=== PATIENT | male | born 1980 | race Caucasian/White ===

== ENCOUNTER 2018-08-20 13:08 | Emergency (ER) | payer MEDICAID, SELFPAY ==
[2018-08-20 13:24] VITALS: BP 120/82; PULSE 69; RESP 16; TEMP 36.5; O2SAT 100
== END 2018-08-20 14:42 ==
LOC: ER 14:50
PROVIDERS: Emergency Provider Physician Assistant; PCP Family Medicine
DX: Z53.21 Procedure and treatment not carried out due to patient leaving prior to being seen by health care provider (principal)

== ENCOUNTER 2019-09-20 09:30 | Outpatient (CLI) | payer MEDICAID, SELFPAY ==
[2019-09-20 13:43] LABS: ALT 29 U/L (16-63); AST 14 U/L (15-37); Albumin 4.3 g/dL (3.4-5.0); Alkaline Phosphatase 63 U/L (46-116); BUN 15 mg/dL (7-18); Bilirubin, Total 0.6 mg/dL (0.2-1.0); CREATININE 0.69 mg/dL (0.70-1.30); Chloride 103 mmol/L (98-107); Glucose 88 mg/dL (74-106); Potassium 4.8 mmol/L (3.5-5.1); Sodium 141 mmol/L (136-145); Total Protein 7.3 g/dL (6.4-8.2); Vitamin B12 455 pg/mL (193-986)
[2019-09-20 13:53] LABS: Abs Immature Grans 0.02 k/cumm (0.0-0.09); Absolute Basophil Count 0.04 k/cumm (0.0-0.2); Absolute Eosinophil Count 0.31 k/cumm (0.0-0.7); Absolute Lymphocyte Count 1.68 k/cumm (1.2-3.4); Absolute Monocyte Count 0.48 k/cumm (0.11-0.7); Absolute Neutrophil Count 2.74 k/cumm (1.2-6.7); Basophils % 0.8; Eosinophils % 5.9; HCT 44.1 % (40.0-50.0); HGB 15.3 g/dL (13.5-17.5); Immature Grans % 0.4 %; Lymphocytes % 31.9; Mean Corp. HGB Concentration 34.7 g/dL (32.0-36.0); Mean Corpuscular Hemoglobin 29.3 pg (27.0-33.0); Mean Corpuscular Volume 84.3 fL (80-95); Mean Platelet Volume 9.4 fL (8.0-11.0); Monocytes % 9.1; Neutrophils % 51.9; Platelet Count 346 x1000/uL (130-400); RBC 5.23 m/cumm (4.50-6.00); RBC Distribution Width 12.4 % (11.8-14.1); White Blood Cell Count 5.27 k/cumm (4.4-10.8)
[2019-09-20 15:11] LABS: ESR 7 mm/hr (0-15)
[2019-09-21 12:33] LABS: IgA 140 mg/dL (85-499); Tissue Transglutaminase IgA <1.2 U/mL (<4.0)
[2019-09-22 05:03] LABS: Vitamin D 25 Total 22.2 ng/ml (30-100)
== END 2019-09-20 09:50 ==
PROVIDERS: PCP Family Medicine; Visit Provider Family Medicine
DX: R53.83 Other fatigue (principal); K52.9 Noninfective gastroenteritis and colitis, unspecified; M81.0 Age-related osteoporosis without current pathological fracture
CPT/HCPCS: 36415; 80053; 82306; 82784; 83516; 85652; 82607; 84443; 85025

== ENCOUNTER 2019-09-26 09:29 | Outpatient (CLI) | payer MEDICAID, SELFPAY ==
--- NOTE | 2019-09-26 09:15 | DI.RAD_ITS ---
EXAM: XR CHEST 2V PA LATERAL XR CHEST 2V PA LATERAL CLINICAL HISTORY: fatigue, R53.83 fatigue, R53.83 TECHNIQUE: 2D digital imaging was performed. COMPARISON: No exams were available for comparison FINDINGS: The heart is not enlarged. The lungs are clear and well expanded. No pleural effusion seen. Mediastin al contours appear intact. IMPRESSION: Normal chest
== END 2019-09-26 09:49 ==
PROVIDERS: PCP Family Medicine; Visit Provider Family Medicine
DX: R53.83 Other fatigue (principal)
CPT/HCPCS: 71046

== ENCOUNTER 2024-10-14 00:32 | Outpatient (CLI) | payer MEDICAID, SELFPAY ==
[2024-10-14 12:10] LABS: Abs Immature Grans 0.01 10^3/uL (0.0-0.06); Absolute Basophil Count 0.06 10^3/uL (0.0-0.2); Absolute Eosinophil Count 0.34 10^3/uL (0.0-0.7); Absolute Monocyte Count 0.45 10^3/uL (0.1-0.8); Absolute Neutrophil Count 3.23 10^3/uL (1.2-6.7); Basophils % 1.1 %; Eosinophils % 6.2 %; HCT 45.1 % (40.0-50.0); Immature Grans % 0.2 %; Lymphocytes % 25.5 %; MCHC 33.3 % (32.0-36.0); MCV 87 fL (80-95); MPV 9.5 fL (8.0-11.0); Monocytes % 8.2 %; Neutrophils % 58.8 %; Platelet Count 321 10^3/uL (130-400); RBC 5.17 10^6/uL (4.36-5.78); RDW 11.9 % (11.8-14.1); RDW-SD 38.4 fL; WBC 5.49 10^3/uL (4.4-10.8)
[2024-10-14 12:45] LABS: Hemoglobin A1C 5.1 % (<5.7)
[2024-10-14 12:54] LABS: ALT 34 U/L (16-63); AST 20 U/L (15-37); Albumin 4.1 g/dL (3.4-5.0); Alkaline Phosphatase 68 U/L (46-116); Anion Gap 5.3 mmol/L (3-11); BUN 13 mg/dL (7-18); Bilirubin, Total 0.7 mg/dL (0.2-1.0); CO2 30.7 mmol/L (21.0-32.0); CREATININE 0.7 mg/dL (0.70-1.30); Calcium 9.7 mg/dL (8.5-10.1); Chloride 107 mmol/L (98-107); Estimated GFR 117.98 (mL/min/1.73m2); Glucose 95 mg/dL (74-106); Potassium 4.7 mmol/L (3.5-5.1); Sodium 143 mmol/L (136-145); TSH (W/Ref FT4) 0.77 uIU/mL (0.36-3.74); Vitamin D 25 Total 27 ng/mL (30-100)
[2024-10-14 18:49] LABS: Hepatitis C Ab w Rflx HCV PCR Negative (Negative)
[2024-10-14 18:55] LABS: HIV-1/2 Ag & Ab Screen Negative (Negative)
[2024-10-14 19:01] LABS: HBs Antibody, Quant 24.7 mIU/mL (See Note); Hep B Surface Ab Positive (See Note); Hepatitis B Core Antibody Negative (Negative); Hepatitis B Surface Antigen Negative (Negative)
[2024-10-21 15:40] LABS: Testosterone, Total 568 ng/dL (240-950)
== END 2024-10-14 00:33 | disposition home or self-care (01) ==
LOC: LOS 00:32
PROVIDERS: PCP Nurse Practitioner Family; Visit Provider Nurse Practitioner Family
DX: Z11.4 Encounter for screening for human immunodeficiency virus [HIV] (principal); Z00.00 Encounter for general adult medical examination without abnormal findings; Z11.59 Encounter for screening for other viral diseases; R53.82 Chronic fatigue, unspecified
CPT/HCPCS: 36415; 80053; 82306; 84403; 86704; 86706; 86803; 87340; 87389; 83036; 84443; 85025

== ENCOUNTER 2024-10-25 02:56 | Outpatient (CLI) | payer MEDICAID, SELFPAY ==
[2024-10-25 13:05] LABS: Calculated LDL 147 mg/dL (<100); Cholesterol 235 mg/dL (<200); HDL Cholesterol 74 mg/dL (>or=40); Triglyceride 71 mg/dL (<150)
== END 2024-10-25 02:57 | disposition home or self-care (01) ==
LOC: LOS 02:56
PROVIDERS: PCP Nurse Practitioner Family; Visit Provider Nurse Practitioner Family
DX: Z00.00 Encounter for general adult medical examination without abnormal findings (principal)
CPT/HCPCS: 36415; 80061